=== PATIENT | male | born 1965 | race Caucasian/White ===

== ENCOUNTER 2020-06-12 08:30 | Day surgery (SDC) | payer OTHER, BC ==
[2020-06-08 11:57] VITALS: BMI 29.5
[2020-06-12] MEDS ORDERED: PROPOFOL 20 ML ONE ×2 (09:04)
[2020-06-12 11:15] VITALS: BP 122/85; PULSE 79; TEMP 97.9
--- NOTE | 2020-06-15 18:20 | PATH ---
Surgical Pathology Report Patient Name: INEZ HOLLIS [facility]. Rec. #: [id number] /Age/Gender: 1965 (Age: 54) / M Account: [id number] Location: [facility] Taken: 06/12/2020 Received: 06/12/2020 Reported: 06/15/2020 Physicians: Noblerto Guerrero M.D. Specimen(s) Received POLYP TRANSVERSE COLON (X3) BIOPSY Clinical History Hematochezia Postoperative diagnosis: Colon polyps, hemorrhoids Final Diagnosis TRANSVERSE COLON, POLYP (X3), BIOPSY: TUBULAR ADENOMA. Electronically Signed Destiny Levin M.D. Gross Description Received in formalin, labeled "biopsy polyp transverse colon x3" are 7 chiu, irregular portions of soft tissue ranging from 0.1-0.3 cm. in greatest dimension. The specimens are submitted in toto in one cassette. /06/13/2020 saudi/06/13/2020
== END 2020-06-12 11:15 | disposition home or self-care (01) ==
LOC: FASU-ENDO 08:30
PROVIDERS: ATTEND Internal Medicine Gastroenterology
PROC: 0DBL8ZX Excision of Transverse Colon, Via Natural or Artificial Opening Endoscopic, Diagnostic (ICD-10-PCS; principal; 2020-06-12 09:17)
DX: K92.1 Melena (principal); D12.3 Benign neoplasm of transverse colon; K64.8 Other hemorrhoids
CPT/HCPCS: 88305-TC